=== PATIENT | female | born 1970 | race Caucasian/White ===

== ENCOUNTER 2021-02-09 14:11 | Emergency (ER) | payer OTHER ==
--- NOTE | 2021-02-09 14:44 | ED Physician Documentation ---
History of Present Illness - Stated complaint Stated Complaint: WEAKNESS - Chief complaint Chief Complaint: General - Additonal information Additional information: 50-year-old female presents the emergency department for evaluation of sudden onset shortness of air as well as tingling in her bilateral upper extremities. She reports a history of diabetes well controlled on Metformin. She states that she had just gotten back from a walk and had eaten a little bit of tortilla when she began to feel lightheaded and short of air. She is quite tachypneic. She reports that she feels fuzzy. She states that she knows that she is breathing well but still feels like she cannot catch her breath. She does have a past medical history that includes an ASD repair in 1988 as well as non-Hodgkin's lymphoma status post chemotherapy with full resolution in 1983. Patient traveled to [facility] from [place] via a few days ago. She denies unilateral leg swelling calf pain or tenderness. She denies abdominal pain. Denies chest pain. Denies nausea vomiting dysuria or any urinary symptoms. On presentation she is awake though tachypneic. Meds: Metformin, simvastatin, phentermine. Review of Systems Constitutional: denies: Fever, Chills Ears: reports: Reviewed and negative Nose: reports: Reviewed and negative Throat: reports: Other (metallic taste in mouth) Cardiac: denies: Chest pain / pressure, Palpitations, Pedal edema, Calf pain Respiratory: reports: Dyspnea. denies: Cough, Hemoptysis, Wheezing GI: denies: Abdominal Pain, Abdominal Swelling, Nausea, Vomiting, Constipation, Diarrhea : denies: Dysuria, Frequency Skin: denies: Rash, Lesions Musculoskeletal: denies: Neck pain, Back pain Neurologic: reports: Generalized weakness, Near syncope. denies: Focal weakness, Numbness (Tingling in bilateral upper extremities.), Difficulty speaking, Syncope, Seizure, Altered mental status, Unresponsive, Headache, Head injury Endocrine: reports: Reviewed and negative PD PAST MEDICAL HISTORY - Present Medications Home Medications: Ambulatory Orders Medication Instructions Recorded Confirmed Azithromycin [Zithromax] 0 mg PO DAILY #6 tablet 02/09/21 Metformin HCl [Metformin ER 1,000 mg PO BID 02/09/21 02/09/21 Osmotic] Phentermine HCl [Adipex-P] 37.5 mg PO DAILY 02/09/21 02/09/21 Simvastatin [Zocor] 40 mg PO HS 02/09/21 02/09/21 - Allergies Allergies/Adverse Reactions: Allergies Allergy/AdvReac Type Severity Reaction Status Date / Time morphine Allergy Anxiety Verified 02/09/21 14:17 Penicillins Allergy Hives Verified 02/09/21 14:17 PD ED PE EXPANDED - General General: In distress (Tachypneic and panting at bedside.) - HEENT HEENT: PERRL - Neck Neck: Supple w/out meningeal sx. No: Adenopathy - Cardiac Cardiac: Regular Rate, Radial strong equal, Pedal strong equal, Cap refill < 2 sec. No: Murmur Present - Respiratory Respiratory: Clear to ausultation iris, Other (Tachypneic.). No: Distress, Labored - Abdomen Abdomen: Normal Bowel sounds. No: Tender to palpation - Neuro Neuro: Alert and Oriented X 3, CNII-XII intact, Normal speech - GCS Eye Opening: Spontaneous Motor: Obeys Commands Verbal: Oriented Total: 15 Results - Vitals Vitals: Vital Signs - 24 hr 02/09/21 02/09/21 02/09/21 14:17 14:53 15:20 Temperature Heart Rate 88 80 83 Respiratory 16 19 23 Rate Blood Pressure 144/78 H 141/74 H 144/77 H O2 Saturation 100 100 100 02/09/21 02/09/21 02/09/21 16:30 17:09 17:49 Temperature 36.6 C Heart Rate 75 78 72 Respiratory 16 22 18 Rate Blood Pressure 180/98 H 166/79 H 172/104 H O2 Saturation 100 100 100 02/09/21 18:14 Temperature Heart Rate 71 Respiratory 20 Rate Blood Pressure 161/90 H O2 Saturation 99 Oxygen O2 Source Room air - EKG (time done) 1427 Rate: Rate (enter#) (81) Rhythm: NSR Colony: Normal Intervals: Normal ID, Prolonged QT QRS: Normal Ischemia: Normal ST segments Compare to prior EKG: Old EKG unavailable Computer interpretation: Agree with computer - Labs Labs: Laboratory Tests 02/09/21 02/09/21 02/09/21 14:47 14:47 14:47 WBC 7.1 RBC 4.99 Hgb 14.6 Hct 44.0 MCV 88.2 MCH 29.3 MCHC 33.2 RDW 13.2 Plt Count 261 MPV 10.2 Neut # (Auto) 4.1 Lymph # (Auto) 2.1 [place] # (Auto) 0.5 Eos # (Auto) 0.3 Baso # (Auto) 0.0 Absolute Nucleated RBC 0.00 Nucleated RBC % 0.0 VBG pH VBG pCO2 VBG pO2 VBG HCO3 VBG Total CO2 VBG O2 Saturation VBG Base Excess Sodium 139 Potassium 3.0 L Chloride 104 Carbon Dioxide 18 L Anion Gap 17.0 H BUN 13 Creatinine 0.8 Estimated GFR (MDRD) 75 L Glucose 156 H Lactic Acid Calcium 9.5 Total Bilirubin 1.1 H AST 29 ALT 29 Alkaline Phosphatase 78 Troponin I High Sens 3.9 B-Natriuretic Peptide Total Protein 7.1 Albumin 4.6 Globulin 2.5 Albumin/Globulin Ratio 1.8 Lipase 21 L Urine Color Urine Clarity Urine pH Ur Specific [place] Urine Protein Urine Glucose (UA) Urine Ketones Urine Occult Blood Urine Nitrite Urine Bilirubin Urine Urobilinogen Ur Leukocyte Esterase Ur Microscopic Review Urine Culture Comments Nasal Adenovirus (PCR) Nasal B. parapertussis DNA (PCR) Nasal Coronavir 229E PCR Nasal Coronavir HKU1 PCR Nasal Coronavir NL63 PCR Nasal Coronavir OC43 PCR Nasal Enterovir/Rhinovir PCR Nasal Influenza B PCR Nasal Influenza A PCR Nasal Parainfluen 1 PCR Nasal Parainfluen 2 PCR Nasal Parainfluen 3 PCR Nasal Parainfluen 4 PCR Nasal RSV (PCR) Nasal B.pertussis DNA PCR Nasal C.pneumoniae (PCR) [place] Metapneumo PCR Nasal M.pneumoniae (PCR) Nasal SARS-CoV-2 (PCR) Urine Opiates Screen Ur Oxycodone Screen Urine Methadone Screen Ur Propoxyphene Screen Ur Barbiturates Screen Ur Tricyclics Screen Ur Phencyclidine Scrn Ur Amphetamine Screen U Methamphetamines Scrn U Benzodiazepines Scrn Urine Cocaine Screen U Cannabinoids Screen Ethyl Alcohol Serum Ketones 02/09/21 02/09/21 02/09/21 14:47 14:47 14:47 WBC RBC Hgb Hct MCV MCH MCHC RDW Plt Count MPV Neut # (Auto) Lymph # (Auto) [place] # (Auto) Eos # (Auto) Baso # (Auto) Absolute Nucleated RBC Nucleated RBC % VBG pH 7.594 H VBG pCO2 20.0 L VBG pO2 26.5 VBG HCO3 18.9 L VBG Total CO2 19.5 L VBG O2 Saturation 70.3 VBG Base Excess -0.1 Sodium Potassium Chloride Carbon Dioxide Anion Gap BUN Creatinine Estimated GFR (MDRD) Glucose Lactic Acid 3.7 H* Calcium Total Bilirubin AST ALT Alkaline Phosphatase Troponin I High Sens B-Natriuretic Peptide Total Protein Albumin Globulin Albumin/Globulin Ratio Lipase Urine Color Urine Clarity Urine pH Ur Specific [place] Urine Protein Urine Glucose (UA) Urine Ketones Urine Occult Blood Urine Nitrite Urine Bilirubin Urine Urobilinogen Ur Leukocyte Esterase Ur Microscopic Review Urine Culture Comments Nasal Adenovirus (PCR) Nasal B. parapertussis DNA (PCR) Nasal Coronavir 229E PCR Nasal Coronavir HKU1 PCR Nasal Coronavir NL63 PCR Nasal Coronavir OC43 PCR Nasal Enterovir/Rhinovir PCR Nasal Influenza B PCR Nasal Influenza A PCR Nasal Parainfluen 1 PCR Nasal Parainfluen 2 PCR Nasal Parainfluen 3 PCR Nasal Parainfluen 4 PCR Nasal RSV (PCR) Nasal B.pertussis DNA PCR Nasal C.pneumoniae (PCR) [place] Metapneumo PCR Nasal M.pneumoniae (PCR) Nasal SARS-CoV-2 (PCR) Urine Opiates Screen Ur Oxycodone Screen Urine Methadone Screen Ur Propoxyphene Screen Ur Barbiturates Screen Ur Tricyclics Screen Ur Phencyclidine Scrn Ur Amphetamine Screen U Methamphetamines Scrn U Benzodiazepines Scrn Urine Cocaine Screen U Cannabinoids Screen Ethyl Alcohol < 5.0 Serum Ketones NEGATIVE 02/09/21 02/09/21 02/09/21 15:30 15:30 15:30 WBC RBC Hgb Hct MCV MCH MCHC RDW Plt Count MPV Neut # (Auto) Lymph # (Auto) [place] # (Auto) Eos # (Auto) Baso # (Auto) Absolute Nucleated RBC Nucleated RBC % VBG pH VBG pCO2 VBG pO2 VBG HCO3 VBG Total CO2 VBG O2 Saturation VBG Base Excess Sodium Potassium Chloride Carbon Dioxide Anion Gap BUN Creatinine Estimated GFR (MDRD) Glucose Lactic Acid Calcium Total Bilirubin AST ALT Alkaline Phosphatase Troponin I High Sens B-Natriuretic Peptide Total Protein Albumin Globulin Albumin/Globulin Ratio Lipase Urine Color LT. YELLOW Urine Clarity CLEAR Urine pH 8.0 H Ur Specific [place] 1.020 Urine Protein NEGATIVE Urine Glucose (UA) NEGATIVE Urine Ketones >=80 H Urine Occult Blood NEGATIVE Urine Nitrite NEGATIVE Urine Bilirubin NEGATIVE Urine Urobilinogen 0.2 (NORMAL) Ur Leukocyte Esterase NEGATIVE Ur Microscopic Review NOT INDICATED Urine Culture Comments NOT INDICATED Nasal Adenovirus (PCR) NOT DETECTED Nasal B. parapertussis DNA (PCR) NOT DETECTED Nasal Coronavir 229E PCR NOT DETECTED Nasal Coronavir HKU1 PCR NOT DETECTED Nasal Coronavir NL63 PCR NOT DETECTED Nasal Coronavir OC43 PCR NOT DETECTED Nasal Enterovir/Rhinovir PCR NOT DETECTED Nasal Influenza B PCR NOT DETECTED Nasal Influenza A PCR NOT DETECTED Nasal Parainfluen 1 PCR NOT DETECTED Nasal Parainfluen 2 PCR NOT DETECTED Nasal Parainfluen 3 PCR NOT DETECTED Nasal Parainfluen 4 PCR NOT DETECTED Nasal RSV (PCR) NOT DETECTED Nasal B.pertussis DNA PCR NOT DETECTED Nasal C.pneumoniae (PCR) NOT DETECTED Jay Human Metapneumo PCR NOT DETECTED Nasal M.pneumoniae (PCR) NOT DETECTED Nasal SARS-CoV-2 (PCR) NOT DETECTED Urine Opiates Screen NEGATIVE Ur Oxycodone Screen NEGATIVE Urine Methadone Screen NEGATIVE Ur Propoxyphene Screen NEGATIVE Ur Barbiturates Screen NEGATIVE Ur Tricyclics Screen NEGATIVE Ur Phencyclidine Scrn NEGATIVE Ur Amphetamine Screen POSITIVE H U Methamphetamines Scrn NEGATIVE U Benzodiazepines Scrn NEGATIVE Urine Cocaine Screen NEGATIVE U Cannabinoids Screen NEGATIVE Ethyl Alcohol Serum Ketones 02/09/21 02/09/21 02/09/21 17:29 17:29 17:29 WBC RBC Hgb Hct MCV MCH MCHC RDW Plt Count MPV Neut # (Auto) Lymph # (Auto) [place] # (Auto) Eos # (Auto) Baso # (Auto) Absolute Nucleated RBC Nucleated RBC % VBG pH VBG pCO2 VBG pO2 VBG HCO3 VBG Total CO2 VBG O2 Saturation VBG Base Excess Sodium 142 Potassium 3.4 L Chloride 108 Carbon Dioxide 23 Anion Gap 11.0 BUN 10 Creatinine 0.7 Estimated GFR (MDRD) 88 L Glucose 109 H Lactic Acid 1.7 Calcium 8.6 Total Bilirubin AST ALT Alkaline Phosphatase Troponin I High Sens B-Natriuretic Peptide 62 Total Protein Albumin Globulin Albumin/Globulin Ratio Lipase Urine Color Urine Clarity Urine pH Ur Specific [place] Urine Protein Urine Glucose (UA) Urine Ketones Urine Occult Blood Urine Nitrite Urine Bilirubin Urine Urobilinogen Ur Leukocyte Esterase Ur Microscopic Review Urine Culture Comments Nasal Adenovirus (PCR) Nasal B. parapertussis DNA (PCR) Nasal Coronavir 229E PCR Nasal Coronavir HKU1 PCR Nasal Coronavir NL63 PCR Nasal Coronavir OC43 PCR Nasal Enterovir/Rhinovir PCR Nasal Influenza B PCR Nasal Influenza A PCR Nasal Parainfluen 1 PCR Nasal Parainfluen 2 PCR Nasal Parainfluen 3 PCR Nasal Parainfluen 4 PCR Nasal RSV (PCR) Nasal B.pertussis DNA PCR Nasal C.pneumoniae (PCR) [place] Metapneumo PCR Nasal M.pneumoniae (PCR) Nasal SARS-CoV-2 (PCR) Urine Opiates Screen Ur Oxycodone Screen Urine Methadone Screen Ur Propoxyphene Screen Ur Barbiturates Screen Ur Tricyclics Screen Ur Phencyclidine Scrn Ur Amphetamine Screen U Methamphetamines Scrn U Benzodiazepines Scrn Urine Cocaine Screen U Cannabinoids Screen Ethyl Alcohol Serum Ketones - Rads (name of study) CXR Radiology: Final report received (No acute cardiopulmonary process.) CT angio Radiology: Final report received (Negative for pulmonary embolism. Generalized interstitial groundglass infiltrates are seen. Please consider pulmonary edema versus atypical infection including Covid pneumonia.) PD MEDICAL DECISION MAKING - ED course Complexity details: reviewed results, re-evaluated patient, d/w patient ED course: 50-year-old female presents to the emergency department for evaluation of sudden onset nausea followed by progressive sensation of shortness of air. When she presented to the emergency department she reported that all of her extremely [place] and she felt like she could not catch her breath. She was in fact panting on exam. However she had no hypoxia or tachycardia. She denied chest pain. Her screening labs here revealed no leukocytosis. Urine was not consistent with infection. She was noted however to be fairly alkalotic secondary to a decreased CO2. Her initial lactate was 3.7. Here in the emergency department she was repleted with 2 L of IV fluids and resultant decrease in lactate to 1.7. Screening chest x-ray was unremarkable for age. But given the acute onset of symptoms and they reported shortness of air we did do a CT angio to rule out a pulmonary embolus. Though no pulmonary embolus was seen there were findings of groundglass opacities. This may represent atypical infection versus Covid versus congestive heart failure. Her BNP was not elevated and she had no crackles on exam or lower extremity edema therefore I doubt congestive heart failure. Rapid Covid screening is negative. After many hours in the emergency department observation her symptoms have fully resolved. Though she lacks cough fever or leukocytosis the groundglass opacities are difficult to ignore and we will therefore start her on an course of azithromycin for possible atypical infection. Patient is traveling here from out of [facility] and was thus given very strict report return precautions should her symptoms fail to improve. It should be noted that her urine drug screen was positive for amphetamine but patient is on phentermine for weight loss. Departure - Departure Disposition: 01 Home, Self Care Clinical Impression: Shortness of breath, Ground glass opacity present on imaging of lung Condition: Stable Record reviewed to determine appropriate education?: Yes Prescriptions: Azithromycin [Zithromax] 0 mg PO DAILY #6 tablet Comments: Mckenzie you were seen in the emergency department for sudden onset nausea followed by shortness of air. As we discussed the chest x-ray was essentially normal. However the CAT scan of your lungs suggest what are called groundglass opacities. We sometimes see this with early infections. Because of this I would like you to fill the prescription for the azithromycin and begin taking as directed. I would encourage you to discuss the continued use of phentermine with your primary care provider. Other forms of weight loss or moderate exercise can be considered. If at any point you find that your symptoms are worsening, you develop shortness of air again, have cough fever or chest pain please return immediately to the emergency department.
--- NOTE | 2021-02-09 14:48 | XRAY Report ---
PROCEDURE: Chest 1 View X-Ray INDICATIONS: SOA TECHNIQUE: One view of the chest was acquired. COMPARISON: None FINDINGS: Surgical changes and devices: Median sternotomy changes. Lungs and pleura: No pleural effusions or pneumothorax. Lungs are clear. Mediastinum: Mediastinal contours appear normal. Heart size is normal. Bones and chest wall: No suspicious bony lesions. Overlying soft tissues appear unremarkable. IMPRESSION: No acute cardiopulmonary process demonstrated radiographically. Reviewed by: Jeremy Spence MD on 02/09/2021 2:46 PM PDT Approved by: Jeremy Spence MD on 02/09/2021 2:46 PM PDT Station ID: [id number]
[2021-02-09] MEDS ORDERED: IOPAMIDOL-300 100 ML VIAL ONE (14:49)
[2021-02-09 14:57] LABS: BASOPHILS % (AUTO) 0.4 %; EOSINOPHILS # (AUTO) 0.3 10^3/uL (0.0-0.7); EOSINOPHILS % (AUTO) 4.4 %; HGB - HEMOGLOBIN 14.6 g/dL (12.0-16.0); LYMPHOCYTES # (AUTO) 2.1 10^3/uL (1.5-3.5); LYMPHOCYTES % (AUTO) 29.8 %; MEAN CORPUSCULAR HEMOGLOBIN 29.3 pg (27.0-31.0); MEAN CORPUSCULAR HGB CONC 33.2 g/dL (32.0-36.0); MEAN CORPUSCULAR VOLUME 88.2 fL (81.0-99.0); MEAN PLATELET VOLUME 10.2 fL (7.9-10.8); MONOCYTES # (AUTO) 0.5 10^3/uL (0.0-1.0); MONOCYTES % (AUTO) 6.8 %; NEUTROPHILS # (AUTO) 4.1 10^3/uL (1.5-6.6); NEUTROPHILS % (AUTO) 58.5 %; PLT - PLATELET COUNT 261 10^3/uL (130-450); RED BLOOD COUNT 4.99 10^6/uL (4.20-5.40); RED CELL DISTRIBUTION WIDTH 13.2 % (12.0-15.0); VBG BASE EXCESS -0.1 mmol/L (-2 - +2); VBG HCO3 18.9 mmol/L (23-28); VBG OXYGEN SATURATION 70.3 % (60-80); VBG PH 7.594 (7.31-7.41); VBG PO2 26.5 mmHg (25-47); VBG TOTAL CO2 19.5 mmol/L (24-29); WHITE BLOOD COUNT 7.1 x10^3/uL (4.8-10.8)
[2021-02-09] MEDS ORDERED: LORazepam 2 MG/ML VIAL IVP STA (15:07)
[2021-02-09] MEDS ORDERED: SODIUM CHLORIDE 0.9% 1,000 ML IV STA ×2 (15:10→15:20)
[2021-02-09 15:12] LABS: ALBUMIN 4.6 g/dL (3.2-5.5); ALBUMIN/GLOBULIN RATIO 1.8 (1.0-2.2); BILIRUBIN,TOTAL 1.1 mg/dL (0.2-1.0); CALCIUM 9.5 mg/dL (8.5-10.3); CREATININE 0.8 mg/dL (0.4-1.0); TOTAL PROTEIN 7.1 g/dL (6.7-8.2)
[2021-02-09] MEDS ORDERED: POTASSIUM CHLOR 10 MEQ/100 ML 10 MEQ/100 ML BAG IV STA ×2 (15:19→15:20)
[2021-02-09] MEDS ORDERED: ONDANSETRON 4 MG/2 ML VIAL IVP STA (15:20)
[2021-02-09] MEDS ORDERED: POTASSIUM CHLORIDE 20 MEQ TABLET PO STA (15:20)
[2021-02-09 15:35] LABS: BILIRUBIN,URINE NEGATIVE (NEGATIVE); GLUCOSE, URINE (UA) NEGATIVE (NEGATIVE); KETONES,URINE (UA) >=80 mg/dL (NEGATIVE); LEUKOCYTE ESTERASE, URINE NEGATIVE (NEGATIVE); NITRITE,URINE NEGATIVE (NEGATIVE); OCCULT BLOOD,URINE NEGATIVE (NEGATIVE); PROTEIN,URINE NEGATIVE (NEGATIVE); UROBILINOGEN,URINE 0.2 (NORMAL) E.U./dL (NORMAL)
[2021-02-09 15:37] LABS: CLARITY,URINE CLEAR (CLEAR)
[2021-02-09 15:50] LABS: KETONES, SERUM (ACETEST) NEGATIVE (NEGATIVE)
[2021-02-09 15:53] LABS: MUDS CUTOFF CONCENTRATIONS CUTOFF CONC BELOW:
[2021-02-09 15:57] LABS: ETOH - ETHANOL < 5.0 mg/dL
[2021-02-09 16:01] LABS: AMPHETAMINE SCREEN,URINE POSITIVE (NEGATIVE); BARBITURATE SCREEN,UR NEGATIVE (NEGATIVE); BENZODIAZEPINES SCREEN, URINE NEGATIVE (NEGATIVE); COCAINE SCREEN URINE NEGATIVE (NEGATIVE); METHADONE SCREEN, URINE NEGATIVE (NEGATIVE); METHAMPHETAMINES SCREEN, URINE NEGATIVE (NEGATIVE); OPIATE SCREEN, URINE NEGATIVE (NEGATIVE); OXYCODONE SCREEN, URINE NEGATIVE (NEGATIVE); PROPOXYPHENE SCREEN, URINE NEGATIVE (NEGATIVE); THC CANNABINOID SCREEN, URINE NEGATIVE (NEGATIVE); TRICYCLIC ANTIDEPRESSANT,URINE NEGATIVE (NEGATIVE)
[2021-02-09 16:25] LABS: B. PARAPERTUSSIS- RESP PCR PAN NOT DETECTED; B. PERTUSSIS- RESP PCR PANEL NOT DETECTED; C. PNEUMONIAE- RESP PCR PANEL NOT DETECTED; CORONAVIRUS 229E-RESP PCR NOT DETECTED; CORONAVIRUS HKU1-RESP PCR NOT DETECTED; CORONAVIRUS NL63-RESP PCR NOT DETECTED; CORONAVIRUS OC43-RESP PCR NOT DETECTED; HUMAN METAPNEUMOVIRUS NOT DETECTED; INFLUENZA A- RESP PCR PANEL NOT DETECTED; INFLUENZA B - RESP PCR PANEL NOT DETECTED; M. PNEUMONIAE- RESP PCR PANEL NOT DETECTED; PARAINFLUENZA VIRUS 1 NOT DETECTED; PARAINFLUENZA VIRUS 2 NOT DETECTED; PARAINFLUENZA VIRUS 3 NOT DETECTED; PARAINFLUENZA VIRUS 4 NOT DETECTED; RHINOVIRUS/ENTEROVIRUS NOT DETECTED; RSV- RESP PCR PANEL NOT DETECTED; SARS-CoV-2 -RESP PCR PANEL NOT DETECTED
[2021-02-09] MEDS ORDERED: IOPAMIDOL-300 100 ML VIAL IVP ONE (16:28)
--- NOTE | 2021-02-09 16:44 | CT Report ---
PROCEDURE: ANGIO CHEST W/WO INDICATIONS: sudden SOA CONTRAST: IV CONTRAST: Isovue 300 ml: 80 PO CONTRAST: *NO PO CONTRAST TECHNIQUE: After the administration of intravenous contrast, 2 mm thick sections acquired from the pulmonary api baldo to the posterior costophrenic angles. 3-dimensional maximum intensity projection (MIP) coronal a nd sagittal reformats were then acquired through the thorax. For radiation dose reduction, the follow ing was used: automated exposure control, adjustment of mA and/or kV according to patient size. COMPARISON: Correlation is made with the chest radiograph performed earlier today. FINDINGS: Image quality: Mild motion artifact can be seen. Pulmonary arteries: Pulmonary arteries are normal in size, and demonstrate no intraluminal filling d efects to suggest central pulmonary embolism. Lungs and pleura: Mild poorly defined interstitial/groundglass infiltrates are seen. No pleural effus ions or pneumothorax. Central and peripheral airways are patent. Mediastinum: Heart size is normal, without pericardial effusion. No mediastinal or hilar adenopathy . Thoracic aorta is normal in caliber and enhancement. Esophagus is normal in caliber. There is a s mall hiatal hernia. Bones and chest wall: Sternotomy changes are noted. No suspicious bony lesions. Ribs and thoracic spine appear intact throughout. The thyroid is normal. No axillary or supraclavicular adenopathy. Abdomen: Cholecystectomy clips are seen. Visualized upper abdominal solid organs appear normal in the early arterial phase of enhancement. IMPRESSION: Negative for pulmonary embolism. Generalized interstitial/groundglass infiltrates are seen. Please consider pulmonary edema versus aty pical infection, including COVID pneumonia. Incidental note is made of: Small hiatal hernia Post sternotomy change Cholecystectomy Reviewed by: Jose Juan Munoz MD on 02/09/2021 3:43 PM PATEL Approved by: Jose Juan Munoz MD on 02/09/2021 3:43 PM PATEL Station ID: [id number]
[2021-02-09 17:44] LABS: CALCIUM 8.6 mg/dL (8.5-10.3); CREATININE 0.7 mg/dL (0.4-1.0); POTASSIUM 3.4 mmol/L (3.5-5.0)
[2021-02-09 18:38] VITALS: BP 147/84
== END 2021-02-09 18:44 | disposition home or self-care (01) ==
LOC: ED 14:11
DX: R91.8 Other nonspecific abnormal finding of lung field (principal); R06.02 Shortness of breath; E11.9 Type 2 diabetes mellitus without complications; Z79.84 Long term (current) use of oral hypoglycemic drugs; Z20.822 Contact with and (suspected) exposure to COVID-19
CPT/HCPCS: 0202U; 36415; 71045; 71275; 80048; 80053; 80306; 80320; 81003; 82009; 82803; 83605; 83690; 83880; 84484; 85025; 93005; 96365; 96368; 96375; 99284; A9270; J2060; Q9967; 81001; 87086